=== PATIENT | male | born 1960 | race Two or more races ===

== ENCOUNTER → 2018-05-09 18:01 | Outpatient (CLI) | payer BC ==
[~2018-05-09 18:01] MED LIST: XANAX1 MG PO
== END | disposition home or self-care (01) ==
LOC: D.LABREF 18:01
DX: R31.9 Hematuria, unspecified (principal)

== ENCOUNTER → 2018-05-13 15:01 | Outpatient (CLI) | payer BC | END | disposition home or self-care (01) | LOC: D.CT 15:01 | DX: R31.21 Asymptomatic microscopic hematuria (principal) ==

== ENCOUNTER 2018-05-24 06:40 | Day surgery (SDC) | payer BC ==
[2018-05-23 12:20] LABS: BASOPHILS 0.4 % (0-2); EOSINOPHILS 1.9 % (0-7); HEMATOCRIT 40.3 % (42.0-54.0); HEMOGLOBIN 13.9 g/dL (13.5-17.5); IMMATURE GRANULOCYTES 0.2 % (0-5); LYMPHOCYTES 32.8 % (15-50); MCH 30.2 pg (26.0-34.0); MCHC 34.5 g/dL (31.0-37.0); MCV 87.6 fL (80.0-100.0); MEAN PLATELET VOLUME 10.6 fL (7.4-10.4); MONOCYTES 8.6 % (2-11); NEUTROPHILS 56.1 % (40-80); PLATELET COUNT 175 10x3/uL (130-400); WBC 4.6 10x3/uL (4.8-10.8)
[2018-05-23 12:28] LABS: APTT 29.6 SECONDS (22.8-39.4); INR 0.94 (0.85-1.17); PROTIME 12.2 SECONDS (11.6-15.0)
[~2018-05-24] VITALS: Ht 182.9 cm; Wt 75.8 kg
--- NOTE | ~2018-05-24 | OP ---
PATIENT NAME: AMANDA LOZADA MEDICAL RECORD: [id number] :56 LOCATION:D.OPS ADMISSION DATE: SURGEON: ENID SANDY MD DATE OF OPERATION: 05/24/2018 SURGEON: Enid Sandy MD ANESTHESIA: General anesthesia by Racquel Mchugh CRNA. 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 PROCEDURES: Cystoscopy, right retrograde pyelogram, right ureteroscopy and ureteral tumor biopsy, right ureteral stent insertion 6-Wallisian x 26 cm long with string attached. FINDINGS: Nonobstructive prostate. Single ureteral orifices bilaterally. No bladder tumors. Small proximal right ureteral papillary tumor at the L3 vertebral body level. 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 BLOOD LOSS: None. CLINICAL HISTORY: This is a 58-year-old male, who was referred for microscopic hematuria. He has a history of smoking heavily in the past. He had a preoperative CT scan for microscopic hematuria, which showed normal appearing kidneys. There was a right lower pole 3 mm stone, which is nonobstructive. The rest of the urinary system appeared to be normal. The patient requested that on cystoscopy for the hematuria workup that he have a right ureteroscopy to remove the right lower pole renal stone also. 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 DESCRIPTION OF PROCEDURE: The patient was given induction of general anesthesia and he was placed in the dorsal lithotomy position. He was then prepped and draped. A 21-Wallisian cystoscope with 30-degree lens was used for visualization. Penile urethra was normal with no strictures or tumors. Prostatic urethra is vascular, but there is no evident obstruction. Going into the bladder, the bladder was also vascular, but again no bladder tumors were found. Furthermore, there were single ureteral orifices bilaterally. We then inserted an open-ended ureteral catheter into the right side and we injected diluted contrast in retrograde fashion for the retrograde pyelogram. No filling defects were seen in the ureter. It should be noted that fluoroscopy did not see the stone in the kidney. It is radiolucent. The retrograde pyelogram also did not find any filling defects. We inserted a Sensor wire up through the ureteral catheter lumen to the renal pelvis level. The ureteral catheter and the cystoscope were then removed, leaving the wire in place. The wire was clamped to the drapes as a safety wire. We then reinserted the [place]. We then reinserted the cystoscope and passed a second Sensor wire up the right ureteral orifice. The first wire acts as a safety wire and the second one is to be our working wire. A 12/14 x 46 cm long ureteral access sheath was then inserted over the working wire. We managed to push this up to the junction between the proximal one-third and the middle one-third of the ureter. Beyond this, the ureteral access sheath would dilate no further. I then removed the ureteral catheter and working wire from the ureteral access sheath, leaving the sheath in place. The scope was then passed. We used a flexible scope. The scope managed to migrate, went about 1-2 cm proximal to the end of the access sheath, but again the scope then met OPERATIVE REPORT [id number] AMANDA LOZADA. At the point of resistance, we saw a 2-3 mm papillary tumor in the ureter. We passed a biopsy forceps through the lumen of the flexible ureteroscope. The tumor was biopsied down to its base on the ureteral wall. The specimen was sent to pathology in formalin for diagnosis. With the flexible scope not being able to pass into the kidney, I decided to remove the flexible scope. The ureteral access sheath was then removed. I went back up the ureter with a rigid ureteroscope. This did not find any other locations in the right ureter with any tumors. We entered into the ureteropelvic junction using the rigid ureteroscope. No other lesions were found. However, the rigid scope was unable to deflect to look for any stones in the lower pole divine of the kidney. The rigid ureteroscope was then removed entirely. We backloaded the safety wire onto the cystoscope. Over this wire, we inserted the 6-Wallisian x 26 cm right ureteral stent. Once the stent was in correct position, the wire was withdrawn entirely. The distal end of the stent was pushed into the bladder using a pusher. The string from the distal end of the stent was maintained. It hangs out to the urethra. It was tied to itself in a knot and cut shorter. The cystoscope was removed entirely. The patient will be going home today. I will see him in followup towards the end of the week to review the pathology results with him. TRANSINT:[id number] Voice Confirmation ID: [id number] DOCUMENT ID: [id number] ENID SANDY MD at 1524 CC: [id number] DICTATION DATE: 05/24/18 1449 OUTSOLES CHANNEL OPENER: 05/24/18 1509 REG [place] [id number] [place] [id number]
[2018-05-24 07:08] VITALS: BP 106/69; Ht 182.9 cm; Wt 75.8 kg
== END 2018-05-24 16:21 | disposition home or self-care (01) ==
LOC: D.OPS 06:40 → D.PAN 07:30 → D.OPS 07:30
PROVIDERS: Anesthesiology
DX: N20.0 Calculus of kidney (principal); D49.59 Neoplasm of unspecified behavior of other genitourinary organ

== ENCOUNTER → 2018-05-27 18:59 | Outpatient (CLI) | payer BC ==
[2018-05-24 07:08] VITALS: BMI 22.7
== END | disposition home or self-care (01) ==
LOC: D.LABREF 18:59
DX: D72.829 Elevated white blood cell count, unspecified (principal); R31.9 Hematuria, unspecified

== ENCOUNTER → 2018-06-14 09:40 | Outpatient (CLI) | payer BC ==
[2018-05-24 07:08] VITALS: BMI 22.7
== END | disposition home or self-care (01) ==
LOC: D.CT 09:30
DX: N20.0 Calculus of kidney (principal)